=== PATIENT | female | born 1960 | race Caucasian/White ===

== ENCOUNTER 2018-07-19 10:10 | Emergency (ER) | payer OTHER, SELFPAY ==
[2018-07-19 10:19] VITALS: BP 136/86; PULSE 73; RESP 17; TEMP 36.6; O2SAT 99; BMI 30.9
--- NOTE | 2018-07-19 10:35 | ED.SKABFB ---
HPI - Skin/Abscess/Foreign Bdy General Chief complaint: Skin/Abscess/Foreign Body Stated complaint: THINKS SHE HAS SHINGLES Time Seen by Provider: 07/19/18 10:29 Source: patient and family Mode of arrival: ambulatory Limitations: no limitations History of Present Illness HPI narrative: 57-year-old female, former smoker presents with her in the chief complaint of painful rash on her left flank. She denies any injury and has had no fever or chills. She denies runny nose, sore throat or cough. She was exposed to chicken pox many years ago and denies any history of shingles. His symptoms have been present for about 5-7 days. She states she felt a burning and tingling ahead of noticing the rash MD complaint: rash Onset (ago): day(s) Tetanus up to date: yes Location: chest Severity: moderate Quality: burning Pain Consistency: constant Relieving factors: none Associated symptoms: denies other symptoms Treatments prior to arrival: none Related Data Home Medications Medication Instructions Recorded Confirmed ASPIRIN (Aspir-Low) 81 mg PO QDAY #0 tab 04/08/13 07/19/18 Previous Rx's Medication Instructions Recorded hydrocodone-acetaminophen 1 tab PO Q4-6H PRN #14 tab 07/19/18 prednisone See Label Instructions .ROUTE 07/19/18 .COMPLEX #30 tab valacyclovir 1,000 mg PO TID 7 Days #21 tab 07/19/18 Allergies Allergy/AdvReac Type Severity Reaction Status Date / Time No Known Drug Allergies Allergy Verified 07/19/18 10:26 Review of Systems Review of Systems All systems reviewed & are unremarkable except as noted in HPI and below Constitutional Denies chills, Denies fever(s), Denies lethargy and Denies weakness Eyes Denies change in vision, Denies eye discharge, Denies irritation and Denies loss of vision ENT Ears, Nose, Mouth, and Throat: Denies change in voice, Denies neck pain and Denies sore throat Cardiovascular Denies chest pain, Denies irregular heart rhythm, Denies lightheadedness, Denies palpitations, Denies dyspnea, Denies dyspnea on exertion and Denies orthopnea Respiratory Denies cough, Denies dyspnea, Denies dyspnea on exertion and Denies wheezing Gastrointestinal Gastrointestinal: Denies abdominal pain, Denies change in bowel habits, Denies diarrhea, Denies nausea and Denies vomiting Genitourinary Denies hematuria, Denies flank pain, Denies urinary incontinence and Denies urinary urgency Musculoskeletal Denies neck pain Integumentary/Breasts Denies pruritus, Reports erythema, Reports rash and Denies wounds Neurologic Denies confusion, Denies loss of vision and Denies weakness Psychiatric Denies anxiety, Denies confusion, Denies depression, Denies homicidal ideation and Denies suicidal ideation Endocrine Denies palpitations Hematologic/Lymphatic Denies easy bruising Allergic/Immunologic Denies wheezing PFSH Surgical History History of cardiac radiofrequency ablation (RFA) Status post tubal ligation Family History Father Hypertension Grandmother Cancer Mother Breast cancer Hyperlipidemia Osteoarthritis Alcoholism Social History Smoking Status: Former smoker Exam Narrative Exam Narrative: GEN: AOx3 and in mild distress EYES: Pupils are equal, round, and reactive to light and accommodation. Extraoccular muscles are intact bilaterally. There is no subconjunctival hemorrhage or exudate. CHEST: Lungs are clear to auscultation bilaterally and free of wheezes, rales, or rhonchi. Heart rate is regular rhythm, there are no murmurs, clicks, rubs, or gallops. There is no chest wall tenderness. ABD: Abdomen is soft and nontender. There is no guarding or rebound. Bowel sounds are normal in all 4 quadrants. There is no mass or organomegaly. EXT: Full painless ROM of all extremities with no loss of sensation or strength. SKIN: Small vesicular rash on left flank and a single dermatome consistent with shingles Initial Vital Signs Initial Vital Signs: Vital Signs Temperature 97.8 F 07/19/18 10:19 Pulse Rate 73 07/19/18 10:19 Respiratory Rate 17 07/19/18 10:19 Blood Pressure 136/86 07/19/18 10:19 Pulse Oximetry 99 07/19/18 10:19 Course Vital Signs - 8 hr 07/19/18 10:19 07/19/18 10:50 Temperature 97.8 F Pulse Rate 73 76 Respiratory Rate 17 18 Blood Pressure 136/86 107/76 Pulse Oximetry 99 97 Discharge Plan Departure Patient Disposition: Home Clinical Impression: Shingles Discharge Date/Time: 07/19/18 10:52 Interventions: ED Discharge Assessment Last Done: 07/19/18 10:50 Instructions: DI for Shingles Activity Restrictions/Additional Instructions: *You have been diagnosed with [ shingles ] *What to do: *Take medications as directed *Follow up with your primary care provider in 2-3 days, call for an appointment. Let them know you were seen in the Emergency Department and that we ask that you be seen in follow up *Return to ER if you should have any new, worsening or concerning symptoms Prescriptions: New prednisone 10 mg tablet See Label Instructions .ROUTE .COMPLEX Qty: 30 RF: 0 valacyclovir 1 gram tablet 1,000 mg PO TID 7 Days Qty: 21 RF: 0 hydrocodone-acetaminophen 5-325 mg tablet 1 tab PO Q4-6H PRN (Reason: pain) Qty: 14 RF: 0 No Action ASPIRIN (Aspir-Low) tablet 81 mg PO QDAY Qty: 0 RF: 0 Referrals: Geraldine Santiago DO [Primary Care Provider] -
[2018-07-19 10:50] VITALS: BP 107/76; PULSE 76; RESP 18; O2SAT 97
== END 2018-07-19 10:52 | disposition home or self-care (01) ==
PROVIDERS: Emergency Provider Emergency Medicine; Family Provider Family Medicine; PCP Family Medicine
DX: B02.9 Zoster without complications (principal)
CPT/HCPCS: 99282

== ENCOUNTER → 2019-02-03 15:52 | Outpatient (CLI) | payer OTHER, SELFPAY ==
--- NOTE | 2019-02-03 15:55 | DI.RAD.S_ITS ---
PROCEDURE: XR RIBS LT MIN 3V W CXR1V INDICATIONS: chest wall pain TECHNIQUE: 2 views of the left ribs were acquired, along with a single view chest. COMPARISON: None. FINDINGS: Surgical changes and devices: None. Bones and chest wall: No fractures or dislocations. No suspicious bony lesions. Overlying soft tissues appear unremarkable. Lungs and pleura: No pleural effusions or pneumothorax. Lungs appear clear. Mediastinum: Mediastinal contours appear normal. Heart size is normal. IMPRESSION: No displaced left rib fractures. Dictated by: Bela Auguste M.D. on 02/03/2019 at 16:52 Approved by: Bela Auguste M.D. on 02/03/2019 at 21:50
== END ==
PROVIDERS: PCP Family Medicine; Visit Provider Hospitalist
DX: R07.89 Other chest pain (principal); M54.9 Dorsalgia, unspecified
CPT/HCPCS: 71101

== ENCOUNTER → 2019-03-07 15:44 | Outpatient (CLI) | payer OTHER, SELFPAY ==
[2019-03-07 17:25] LABS: Body Fluid Red Blood Cells 1691 /uL; Body Fluid Tot Nucleated Cells 258 /uL
[2019-03-07 17:40] LABS: Body Fluid Appearance SLIGHTLY CLOUDY; Body Fluid Clotted? NO CLOTS PRESENT; Body Fluid Color YELLOW; Eosinophils Body Fluid 0 %; Mononuclear WBC Body Fluid 80 %; Other Cells Body Fluid 0 %; Polynuclear WBC Body Fluid 20 %
== END ==
PROVIDERS: PCP Family Medicine; Visit Provider Family Medicine
DX: M25.461 Effusion, right knee (principal)
CPT/HCPCS: 87070; 87075; 87205; 89051; 89060

== ENCOUNTER → 2019-03-07 15:53 | Outpatient (CLI) | payer OTHER, SELFPAY ==
--- NOTE | 2019-03-07 15:56 | DI.RAD.S_ITS ---
PROCEDURE: XR KNEE RT 3V INDICATIONS: right knee pain and effusion TECHNIQUE: 3 views of the knee were acquired. COMPARISON: [facility], CR, TIB/FIB 2V RIGHT, 06/26/2016, 13:44. FINDINGS: Bones: No fractures or dislocations. No suspicious bony lesions. There is mild tricompartmental knee joint degeneration. Soft tissues: Small joint effusion. No suspicious soft tissue calcifications. IMPRESSION: Mild degenerative changes and small joint effusion. Dictated by: Bela Auguste M.D. on 03/07/2019 at 17:29 Approved by: Bela Auguste M.D. on 03/07/2019 at 17:30
== END ==
PROVIDERS: PCP Family Medicine; Visit Provider Family Medicine
DX: M17.11 Unilateral primary osteoarthritis, right knee (principal); M25.461 Effusion, right knee; M25.561 Pain in right knee
CPT/HCPCS: 73562; 87070; 87075; 87205; 89051; 89060

== ENCOUNTER → 2019-10-05 13:39 | Outpatient (CLI) | payer OTHER, MEDICAID, SELFPAY ==
--- NOTE | 2019-10-05 13:42 | DI.RAD.S_ITS ---
PROCEDURE: XR HAND LT MIN 3V INDICATIONS: left hand pain, fall 3rd metacarpal pain TECHNIQUE: 3 views of the hand(s) acquired. COMPARISON: None. FINDINGS: Bones: No dislocations. Carpal bones are normally aligned. No suspicious bony lesions. There is a diagonal fracture through the proximal diaphysis of the fourth metacarpal bone, slightly angulated Soft tissues: No suspicious soft tissue calcifications. IMPRESSION: Acute diagonal fracture through the proximal diaphysis of the fourth metacarpal. Dictated by: Keith Mena M.D. on 10/05/2019 at 14:11 Approved by: Keith Mena M.D. on 10/05/2019 at 14:12
== END ==
PROVIDERS: PCP Family Medicine
DX: M79.642 Pain in left hand (principal); S62.395A Other fracture of fourth metacarpal bone, left hand, initial encounter for closed fracture; W19.XXXA Unspecified fall, initial encounter
CPT/HCPCS: 73130

== ENCOUNTER → 2020-01-12 12:09 | Outpatient (CLI) | payer OTHER, MEDICAID, SELFPAY ==
--- NOTE | 2020-01-12 12:13 | DI.RAD.S_ITS ---
PROCEDURE: XR HAND LT MIN 3V INDICATIONS: hand pain TECHNIQUE: 3 views of the hand(s) acquired. COMPARISON: [facility], , XR HAND LT MIN 3V, 10/05/2019, 13:37. FINDINGS: Bones: No fractures or dislocations. Previously present degenerative osteoarthritis at the distal interphalangeal joints appears stable over time without superimposed erosive arthritis. Mild radiocarpal degenerative osteoarthritis. Carpal bones are normally aligned. No suspicious bony lesions. Soft tissues: No suspicious soft tissue calcifications. IMPRESSION: Mild osteoarthritis, but without exchange engineer time. No trauma or erosive arthritis is found. Dictated by: Keith Mena M.D. on 01/12/2020 at 12:57 Approved by: Keith Mena M.D. on 01/12/2020 at 12:59
== END ==
PROVIDERS: PCP Family Medicine; Referring Provider Family Medicine; Visit Provider Family Medicine
DX: M79.642 Pain in left hand (principal); M19.042 Primary osteoarthritis, left hand
CPT/HCPCS: 73130